=== PATIENT | male | born 1965 | race Hispanic/Latino ===

== ENCOUNTER 2019-07-17 08:22 | Day surgery (SDC) | payer OTHER ==
[2019-07-16 09:24] VITALS: BP 138/83
[2019-07-16 09:24] LABS: BASOPHILS % (AUTO) 0.6 % (0.0-5.0); EOSINOPHILS % (AUTO) 3.2 % (0.0-8.0); HEMATOCRIT 43.2 % (42-54); LYMPHOCYTES % (AUTO) 21.6 % (21.0-51.0); MEAN CORPUSCULAR HEMOGLOBIN 31.5 pg (27.0-33.0); MEAN CORPUSCULAR HGB CONC 33.6 g/dL (32.0-36.0); MEAN CORPUSCULAR VOLUME 93.7 fL (79-99); MONOCYTES % (AUTO) 9.1 % (3.0-13.0); NEUTROPHILS % (AUTO) 65.5 % (40.0-77.0); PLATELET COUNT (AUTO) 180 K/uL (130-400); RED BLOOD CELL COUNT(AUTO) 4.61 MIL/uL (4.50-6.20); RED CELL DISTRIBUTION WIDTH 13.5 % (11.0-15.5); WHITE BLOOD COUNT (AUTO) 7.7 K/uL (4.8-10.8)
[2019-07-16 09:31] LABS: APPEARANCE,URINE Clear (CLEAR); BILIRUBIN,URINE Negative (NEGATIVE); COLOR,URINE Yellow (YELLOW); GLUCOSE, URINE (UA) Negative (NEGATIVE); KETONES,URINE Negative (NEGATIVE); LEUKOCYTE ESTERASE ,URINE Small (NEGATIVE); NITRATE,URINE Negative (NEGATIVE); OCCULT BLOOD,URINE Negative (NEGATIVE); PROTEIN,URINE Negative (NEGATIVE)
[2019-07-16 09:52] LABS: BACTERIA,URINE Rare /HPF (None Seen); RBC,URINE 0-1 /HPF (0-1); SQUAMOUS EPITHELIAL CELL,UR Rare /HPF (0-2)
[2019-07-16] MEDS: CEFAZOLIN 3GM /D5W 100ML 100 ML IV SCH (10:15)
[2019-07-17] VITALS (15 sets, daily range): BP systolic 125–156; BP diastolic 78–100
[~2019-07-17] VITALS: Ht 175.3 cm; Wt 103.4 kg
[~2019-07-17 08:22] MED LIST: LACTATED RINGERS 1000ML 1,000 ML IV SCH
[2019-07-17] MEDS ORDERED: CEFAZOLIN SODIUM 1 GM VIAL ONE (09:02)
[2019-07-17] MEDS ORDERED: SUCCINYLCHOLINE 200MG/10ML SYR ONE ×2 (09:38→10:28)
[2019-07-17] MEDS ORDERED: DEXAMETHASONE SOD PHOSPHATE 10MG/ML 1ML VIAL ONE (09:38)
[2019-07-17] MEDS ORDERED: ROCURONIUM 10MG/1ML SYR 10 MG/ML ML ONE (09:38)
[2019-07-17] MEDS ORDERED: MIDAZOLAM HCL 1 MG/ML 2ML VIAL ONE ×2 (09:38→09:43)
[2019-07-17] MEDS ORDERED: GLYCOPYRROLATE 1 MG/5 ML SYRINGE ONE (09:38)
[2019-07-17] MEDS ORDERED: NEOSTIGMINE 5MG/5ML SYR IV ONE (09:38)
[2019-07-17] MEDS ORDERED: ONDANSETRON HCL 4 MG/2 ML VIAL ONE (09:38)
[2019-07-17] MEDS ORDERED: LIDOCAINE PF 2% 5ML ABBOJECT ONE (09:38)
[2019-07-17] MEDS ORDERED: PROPOFOL 10 MG/ML 20ML VIAL IV ONE (09:38)
[2019-07-17] MEDS: CEFAZOLIN 3GM /D5W 100ML 100 ML IV SCH (10:30)
[2019-07-17] MEDS ORDERED: FENTANYL CITRATE PF 50 MCG/1 ML 5ML AMP IV ONE (10:38)
[2019-07-17] MEDS ORDERED: BUPIVACAINE/PF 0.25% 30ML VIAL IJ ONE (10:44)
== END 2019-07-17 13:30 | disposition home or self-care (01) ==
LOC: DAH 08:22
PROVIDERS: ATTEND Surgery
DX: K43.2 Incisional hernia without obstruction or gangrene (principal); E66.3 Overweight; Z68.33 Body mass index [BMI] 33.0-33.9, adult; Z72.89 Other problems related to lifestyle; Z83.3 Family history of diabetes mellitus
CPT/HCPCS: 36415; 49560; 49568; 81001; 85025; 88302; 96374; A4450; A4452; A4606; C1781; J0330 ×2; J0690; J1100; J2001; J2250 ×2; J2405; J2704; J2710; J3010; J3490 ×2; J7120 ×2

== ENCOUNTER 2019-09-01 17:29 | Emergency (ER) | payer OTHER ==
[2019-09-01] MEDS ORDERED: OCTYL 2-CYANOACRYLATE 1 EACH TP ONE (17:59)
[2019-09-01] MEDS ORDERED: TETANUS/DIPHTHERIA TOXOID [ADULT] 0.5 ML VIAL IM ONE (18:00)
== END 2019-09-01 18:51 | disposition home or self-care (01) ==
LOC: EDH 17:29
DX: S61.210A Laceration without foreign body of right index finger without damage to nail, initial encounter (principal); Z87.891 Personal history of nicotine dependence; W26.8XXA Contact with other sharp object(s), not elsewhere classified, initial encounter; Y93.89 Activity, other specified; Y92.69 Other specified industrial and construction area as the place of occurrence of the external cause; Y99.0 Civilian activity done for income or pay
CPT/HCPCS: 12042; 73140; 90471; 90714

== ENCOUNTER 2019-10-16 21:43 | Emergency (ER) | payer OTHER ==
[2019-10-16 22:31] LABS: APPEARANCE,URINE Clear (CLEAR); BILIRUBIN,URINE Negative (NEGATIVE); COLOR,URINE Yellow (YELLOW); GLUCOSE, URINE (UA) Negative (NEGATIVE); KETONES,URINE Negative (NEGATIVE); LEUKOCYTE ESTERASE ,URINE Negative (NEGATIVE); NITRATE,URINE Negative (NEGATIVE); OCCULT BLOOD,URINE Negative (NEGATIVE); PROTEIN,URINE Negative (NEGATIVE); UROBILINOGEN,URINE 0.2 mg/dL (0.2-1.0)
== END 2019-10-16 22:33 | disposition home or self-care (01) ==
LOC: EDH 21:43
DX: R09.89 Other specified symptoms and signs involving the circulatory and respiratory systems (principal); Q60.0 Renal agenesis, unilateral; Z52.4 Kidney donor; K46.9 Unspecified abdominal hernia without obstruction or gangrene; Z72.0 Tobacco use; Z53.21 Procedure and treatment not carried out due to patient leaving prior to being seen by health care provider
CPT/HCPCS: 81003

== ENCOUNTER 2021-04-10 22:05 | Emergency (ER) | payer OTHER ==
[2021-04-10] MEDS ORDERED: KETOROLAC TROMETHAMINE 60 MG/2 ML VIAL ONE (22:30)
[2021-04-10] MEDS ORDERED: DIAZEPAM 5 MG/ML 2 ML SYG ONE (22:30)
== END 2021-04-10 23:05 | disposition home or self-care (01) ==
LOC: EDH 22:05
DX: M54.41 Lumbago with sciatica, right side (principal); Z72.0 Tobacco use
CPT/HCPCS: 96372 ×2; 99284; J1885; J3360

== ENCOUNTER 2022-10-03 11:57 | Emergency (ER) | payer MEDICARE, OTHER ==
[~2022-10-03] VITALS: Ht 177.8 cm; Wt 104.3 kg
[2022-10-03] MEDS ORDERED: OSELTAMIVIR PHOSPHATE 75 MG CAP PO SCH (13:30)
[2022-10-03] MEDS ORDERED: ALBU6.7H14 IH (14:08)
[2022-10-03] MEDS ORDERED: IBUP-2071 PO (14:08)
[2022-10-03] MEDS ORDERED: OSEL75 PO (14:08)
[2022-10-03 14:17] VITALS: BP 139/85
== END 2022-10-03 14:18 | disposition home or self-care (01) ==
LOC: EDH 11:57
DX: J10.1 Influenza due to other identified influenza virus with other respiratory manifestations (principal); Z20.822 Contact with and (suspected) exposure to COVID-19
CPT/HCPCS: 71045; 87426; 87804; 87880

== ENCOUNTER 2025-03-31 11:24 | Emergency (ER) | payer MEDICARE, OTHER ==
[~2025-03-31] VITALS: Ht 177.8 cm; Wt 102.5 kg
[~2025-03-31 11:24] MED LIST changes: +ALBU6.7H14 IH; +IBUP-2071 PO; -LACTATED RINGERS 1000ML 1,000 ML IV SCH; +OSEL75 PO
--- NOTE | 2025-03-31 12:55 | ERN ---
General Chief Complaint: Back Pain or Injury Stated Complaint: SEVERE LOWER BACK PAIN Time Seen by MD: 11:32 Source: patient History of Present Illness Initial Comments PATIENT IS A 59-YEAR-OLD GENTLEMAN COMING IN COMPLAINING OF BACK PAIN. PATIENT STATES THAT HE WAS THREE HERNIATED DISC WAS TOLD BEFORE. HE STATES THAT TWO DAYS AGO HE WAS STARTED PRESENTING WITH BACK PAIN WHICH HAS PROGRESSIVELY GOTTEN WORSE. PATIENT ALSO STATES THAT THE PAIN IS EXACERBATED WITH MOVEMENT. Allergies: Coded Allergies: No Known Drug Allergies (Unverified Allergy, Unknown, 07/16/19) Home Meds Active Scripts Albuterol Sulfate (Proventil Hfa) 6.7 Gm Hfa.aer.ad, 2 PUFF IH QID, #1 INHALER Prov:JUAN ANTONIO SIMS 10/03/22 Ibuprofen (Ibuprofen) 800 Mg Tablet, 800 MG PO TID PRN for PAIN, #45 TAB Prov:JUAN ANTONIO SIMS 10/03/22 Oseltamivir Phosphate (Tamiflu) 75 Mg Cap, 75 MG PO BID for 5 Days, #10 CAP Prov:JUAN ANTONIO SIMS 10/03/22 Past Medical History Past Medical History: No Pertinent History Medical History Other: HERNIATED DISK Past Surgical History: Other Surgical History Other: HERNIA, LEFT NEPHRECTOMY Family History Family History: Negative Social History Social History: Lives with family ROS Dictation CONSTITUTIONAL: NO CHILLS, NO FEVER, NO WEAKNESS, NO DIAPHORESIS, NO MALAISE. HEAD/FACE: NO SIGNS OF TRAUMA. EENT: NO EYE PAIN, NO BLURRED VISION, NO TEARING, NO DOUBLE VISION, NO EAR PAIN, NO EAR DISCHARGE, NO NOSE PAIN, NO NASAL CONGESTION, NO THROAT PAIN, NO THROAT SWELLING, NO MOUTH PAIN. RESPIRATORY: NO COUGH, NO ORTHOPNEA, NO SOB, NO STRIDOR, NO WHEEZING. CARDIOVASCULAR: NO CHEST PAIN, NO EDEMA, NO PALPITATIONS, NO SYNCOPE. GASTROINTESTINAL/ABDOMINAL: NO ABDOMINAL PAIN, NO CONSTIPATION, NO DIARRHEA, NO NAUSEA, NO VOMITING. GENITOURINARY: NO ABNORMAL DISCHARGE, NO DYSURIA, NO FREQUENT URINATION, NO HEMATURIA. NO COMPLAINTS OF PAIN IN THE GENITALS. MUSCULOSKELETAL: BACK PAIN, NO GOUT, NO JOINT PAIN, NO JOINT SWELLING, NO MUSCLE PAIN, NO MUSCLE STIFFNESS, NO NECK PAIN. INTEGUMENTARY: NO CHANGE IN COLOR, NO CHANGE IN HAIR/NAILS, NO DRYNESS, NO LESION, NO LUMPS, NO RASH. NEUROLOGICAL/PSYCH: NO ANXIETY, NOT DEPRESSED, NO EMOTIONAL PROBLEM, NO HEADACHE, NO NUMBNESS, NO PRE-EXISTING DEFICIT, NO HISTORY OF SEIZURES, NO TREMORS, NO WEAKNESS. HEMATOLOGIC/LYMPHATIC: NOT ANEMIC, NO HISTORY OF BLOOD CLOTS, NO APPARENT BLEEDING, NO BRUISING, GLANDS NOT SWOLLEN. ALL SYSTEMS NEGATIVE, EXCEPT NOTED. Physical Exam Physical Exam Dictation VITAL SIGNS: REVIEWED. GENERAL APPEARANCE: ALERT, ORIENTED X3, NO ACUTE DISTRESS, OBESE. HEAD AND FACE: NON-TRAUMATIC. EYES: PERRL, PINK CONJUNCTIVAS, EYELID NO TRAUMA, ANTERIOR CHAMBER CLEAR. EARS: PINNAS INTACT AND NO SIGNS OF TRAUMA OR ERYTHEMA. EAR CANALS CLEAR AND NO DISCHARGE. TMS NO ERYTHEMA. NOSE: NO DISCHARGE, NO BLEEDING. OROPHARYNX: MOUTH NORMAL, TEETH NO CARIES, TONGUE PINK. PHARYNX CLEAR, NO ERYTHEMA. TONSILS NO EXUDATES, NO ABSCESSES NOTED. MUCOUS MEMBRANE MOIST. NECK: SUPPLE, NON-TENDER, NO THYROMEGALY, NO MASSES, NO JVD, NO BRUITS. BREAST: DEFERRED. CHEST: NO TENDERNESS, NO CREPITUS, NO PARADOXICAL MOVEMENT, NO RETRACTIONS. LUNGS: CLEAR, WELL-VENTILATED, SYMMETRIC, NO RALES, NO WHEEZING, NO RHONCHI, NO STRIDOR, GOOD BREATH SOUNDS BILATERALLY. HEART: REGULAR RATE, REGULAR RHYTHM, NO MURMUR, NO GALLOPS. VASCULAR: NO PERIPHERAL EDEMA. ABDOMEN: SOFT, POSITIVE BOWEL SOUNDS, NONDISTENDED, NO GUARDING, NONTENDER, NO REBOUND, NO MASSES NO HEPATOMEGALY, NO SPLENOMEGALY, NO WHEELER'S SIGN, NO HERNIAS. RECTAL: DEFERRED. GENITAL: DEFERRED. NEUROLOGICAL: NORMAL SPEECH, GROSS MOTOR FUNCTION INTACT, GROSS SENSORY FUNCT ION INTACT. MUSCULOSKELETAL: NECK NONTENDER, FULL RANGE OF MOTION, HORN PLAYER, DECREASED RANGE OF MOTION. EXTREMITIES: NONTENDER, FULL RANGE OF MOTION. SKIN: COLOR PINK, DRY, NO TURGOR, NO RASH, NO LACERATIONS, NO ABRASIONS, NO CO NTUSIONS. LYMPHATICS: DEFERRED. Results Laboratory and Microbiology Labs Reviewed?: Yes EKG/XRAY/US/CT/MRI X-RAY Comment [place] [id number] [place] [address] [phone] IMAGING REPORT Signed PATIENT: DILAN ARANDA MR#: [id number] : 1965 SEX: M AGE: 59 LOCATION: [facility] ORDER 44 STATUS: REG ER REPORT#: [id number] SERVICE 43 REASON: PAIN ORDERING PHYSICIAN: VERA GONSALEZ MD PROCEDURE: LUMB 2 3VW - LUMBAR SPINE 2-3VWS LUMBAR SPINE 2-3VWS HISTORY: Pain COMPARISON: None FINDINGS: 3 images of the lumbar spine were obtained. Disc space narrowing are seen at L4-5 and L5-S1 levels. Anterior osteophytes are seen. There are degenerative changes in lumbar spine spondylosis. There is straightening of normal lordotic curvature which may be related to muscle spasm or positioning. No loss of vertebral height is seen. No fracture or dislocation is seen. Degenerative changes are seen. IMPRESSION: 1. No fracture is seen. DJD. DICTATED BY: IRON MAYEN MD DATE: 03/31/251410 ELECTRONICALLY SIGNED BY: IRON MAYEN MD DATE: 03/31/251412 [facility] MDM: DIFFERENTIAL DIAGNOSIS: Lumbar strain, vertebral fracture, lordosis, RATIONALE: TESTS CONSIDERED AND ORDERED SECONDARY TO SHARED DECISION MAKING INCLUDE: PREVIOUS OUTSIDE RECORDS REVIEWED: OLD ER VISITS. RISK OF COMPLICATION AND/OR MORBIDITY OR MORTALITY OF PATIENT MANAGEMENT: NONE MEDICATIONS-PER MEDICATION RECONCILIATION Patient is a 59-year-old gentleman coming in complaining of back pain. Patient was told that he was herniated she was in the past. X-ray did not disclose acute findings. Patient received some pain medications including antispasmodics states it was much better will be discharged in stable condition. ED Course Orders Procedure Category Date Status Time Orphenadrine Citrate PHA 03/31/25 Complete (Norflex) 13:00 Triamcinolone Acet PHA 03/31/25 Complete 40mg/Ml 1ml (Kenalog 13:00 Lumbar Spine 2-3vws RAD 03/31/25 Resulted 12:44 Current Medications Medications (Trade) Dose Ordered Sig/Johan Route PRN Reason Start Time Stop Time Status Last Admin Dose Admin Orphenadrine Citrate (Norflex) 60 mg ONCE ONCE IM 03/31/25 13:00 03/31/25 13:01 DC 03/31/25 14:01 Triamcinolone Acetonide (Kenalog 40) 40 mg ONCE ONCE IM 03/31/25 13:00 03/31/25 13:01 DC 03/31/25 14:01 Vital Signs Date Time Temp Pulse Resp B/P (MAP) Pulse Ox O2 Delivery O2 Flow Rate FiO2 03/31/25 11:31 97.9 80 16 154/73 96 0 DX & DISP Disposition: Discharge Departure Impression: Primary Impression: Acute on chronic low back pain Condition: Stable Scripts Naproxen (Naproxen) 375 Mg Tablet. 375 MG PO BID for 7 Days, #14 TAB Prov: VERA GONSALEZ MD 03/31/25 Methocarbamol (Robaxin) 750 Mg Tab 1 TAB PO BID for 7 Days, #14 TAB 0 Refills Prov: VERA GONSALEZ MD 03/31/25 Additional Instructions: FOLLOW-UP WITH PRIMARY CARE PROVIDER IN 1 TO 2 DAYS. TAKE MEDICATIONS DIRECTED HERE IN THE EMERGENCY ROOM. OKAY TO CONTINUE HOME MEDICATIONS UNLESS OTHERWISE DISCUSSED DURING YOUR VISIT IN THE EMERGENCY ROOM TODAY. RETURN TO YOUR NEAREST EMERGENCY ROOM IF SYMPTOMS WORSEN OR IF THERE IS NO IMPROVEMENT. CALL 911 IF YOU NEED IMMEDIATE ASSISTANCE. TAKE TYLENOL [id number] NE EDED AND IF NO CONTRAINDICATIONS ARE PRESENT. INCREASE ORAL HYDRATION. A WOUND CULTURE OR URINE CULTURE WAS ORDERED HERE IN THE EMERGENCY ROOM DEPARTMENT PLEASE FOLLOW-UP WITH PRIMARY CARE PROVIDER AND ADVISE THEM TO GET REPEAT PORTS FROM OUR FACILITY. IF YOU HAD ANY SHARONDA WRAP/SPLINTS THAT WERE APPLIED HERE, PLEASE DO NOT REMOVE THEM UNTIL YOU SEE YOUR PRIMARY CARE OR SPECIALTY. Referrals: Referrals: MARYSOL SIMMONS MD (PCP) Time of Disposition: 14:32 VERA GONSALEZ MD March 31, 2025 12:55
[2025-03-31] MEDS: TRIAMCINOLONE ACETONIDE 40 MG/ML 1ML VIAL IM ONE (14:01)
[2025-03-31] MEDS: ORPHENADRINE 60MG/2ML IM ONE (14:01)
--- NOTE | 2025-03-31 14:13 | HMCIMG ---
LUMBAR SPINE 2-3VWS HISTORY: Pain COMPARISON: None FINDINGS: 3 images of the lumbar spine were obtained. Disc space narrowing are seen at L4-5 and L5-S1 levels. Anterior osteophytes are seen. There are degenerative changes in lumbar spine spondylosis. There is straightening of normal lordotic curvature which may be related to muscle spasm or positioning. No loss of vertebral height is seen. No fracture or dislocation is seen. Degenerative changes are seen. IMPRESSION: 1. No fracture is seen. DJD.
[2025-03-31 14:30] VITALS: BP 151/73; PULSE 76; RESP 16; TEMP 97.9; O2SAT 97
[2025-03-31] MEDS ORDERED: METH-662 PO (14:33)
[2025-03-31] MEDS ORDERED: NAPR-1505 PO (14:33)
== END 2025-03-31 14:46 | disposition home or self-care (01) ==
LOC: EDH 11:24
DX: G89.29 Other chronic pain (principal); M54.50 Low back pain, unspecified; Z90.5 Acquired absence of kidney
CPT/HCPCS: 99284; 72100; 96372 ×2; J3301; J2360